=== PATIENT | male | born 1960 ===

== ENCOUNTER 2021-06-20 14:51 | Emergency (ER) | payer OTHER ==
[~2021-06-20] VITALS: Ht 167.6 cm; Wt 76.2 kg
[2021-06-20] MEDS ORDERED: KETO10TA2 PO (19:48)
[2021-06-20] MEDS ORDERED: ORPHENADRINE C100 MG PO (19:48)
== END 2021-06-20 21:35 ==
LOC: ER 14:51
DX: S33.5XXA Sprain of ligaments of lumbar spine, initial encounter (principal); X58.XXXA Exposure to other specified factors, initial encounter; Y93.89 Activity, other specified; Y92.091 Bathroom in other non-institutional residence as the place of occurrence of the external cause